=== PATIENT | female | born 1975 ===

== ENCOUNTER 2019-12-13 06:28 | Inpatient (IN) | payer BC ==
[2019-12-13] VITALS (13 sets, daily range): BP systolic 90–128; BP diastolic 54–86
[~2019-12-13] VITALS: Ht 157.5 cm; Wt 49.9 kg
[~2019-12-13 06:28] MED LIST: ATIVAN0.5 MG ORAL; CYMBALTA30 MG ORAL
[2019-12-13] MEDS ORDERED: Ropivacaine 5mg/ml Vial 30ml INJ ONE ×2 (06:55→08:29)
[2019-12-13] MEDS ORDERED: Bupivacaine 0.5% Inj 30 ml vial INJ ONE (06:56)
[2019-12-13] MEDS ORDERED: cefOXitin Sod 2 GM in D5W 110 ML IVPB ONE (07:00)
--- NOTE | 2019-12-13 07:18 | Anethesia Preoperative Eval ---
Anesthesia Pre-op PMH/ROS General Date of Evaluation: Dec 13, 2019 Anesthesiologist: Irvin ASA Score: ASA 2 Mallampati Score Class I : Soft palate, uvula, fauces, pillars visible Class II: Soft palate, uvula, fauces visible Class III: Soft palate, base of uvula visible Class IV: Only hard plate visible Mallampati Classification: Class I Surgeon: Duncan Diagnosis: Uterine fibroids Surgical Procedure: open myomectomy, d&C hysteroscopy Anesthesia History: none Family History: no anesthesia problems Allergies: Coded Allergies: No Known Allergies (Unverified , 12/13/19) Medications: see eMAR Patient NPO?: Yes NPO Date: Dec 13, 2019 NPO Time: 0000 Past Medical History Cardiovascular: Denies: HTN, CAD, VA, valve dz, arrhythmia, other Pulmonary: Denies: asthma, COPD, MICHELLE, other Gastrointestinal/Genitourinary: Denies: GERD, CRI, ESRD, other Neurologic/Psychiatric: Reports: depression/anxiety; Denies: dementia, CVA, TIA, other Endocrine: Denies: DM, hypothyroidism, steroids, other HEENT: Denies: cataract (L), cataract (R), glaucoma, SEMINOLE (L), SEMINOLE (R), other Hematology/Immune: Denies: anemia, DVT, bleeding disorder, other Musculoskeletal/Integumentary: Denies: OA, RA, DJD, DDD, edema, other PSxH Narrative: breast aug,lap appy Anesthesia Pre-op Phys. Exam Physician Exam Last Vital Signs Date Time Temp Pulse Resp B/P (MAP) Pulse Ox O2 Delivery O2 Flow Rate FiO2 12/13/19 07:11 Room Air 12/13/19 07:06 98.2 79 18 90/54 (66) 100 Constitutional: NAD Cardiovascular: RRR Respiratory: CTA Airway Exam Mallampati Score: Class I MO: full ROM: full Teeth: intact Anesthesia Pre-op A/P Labs see chart Urine Test Test 12/13/19 06:45 Urine HCG, Qualitative Negative (NEGATIVE) Studies Pre-op Studies: EKG - sr Risk Assessment & Plan Assessment: ASA II Plan: GA Status Change Before Surgery: No Pre-Antibiotics Drug: TBD Given Within 1 Hr of Incision: Yes Irina Hughes MD Dec 13, 2019 07:18
[2019-12-13] MEDS ORDERED: cefOXitin 2gm Inj ONE (07:20)
[2019-12-13] MEDS ORDERED: Rocuronium Bromide 50mg/5ml Inj IV ONE (07:20)
[2019-12-13] MEDS ORDERED: NS Irrig 1000ml IRRIG ONE ×2 (07:24→07:52)
[2019-12-13] MEDS ORDERED: fentaNYL 100 mcg/2 mL IV ONE (07:25)
[2019-12-13] MEDS ORDERED: Lidocaine 1% MPF 10mg/ml 5ml ONE (07:25)
[2019-12-13] MEDS ORDERED: Propofol 200mg/20ml IV ONE (07:25)
[2019-12-13] MEDS ORDERED: Midazolam 2mg/2ml Inj ONE (07:25)
[2019-12-13] MEDS ORDERED: Metoclopramide 10mg/2ml Inj ONE (07:27)
[2019-12-13] MEDS ORDERED: Ketorolac 30mg Inj ONE (07:27)
[2019-12-13] MEDS ORDERED: Dexamethasone 4mg/ml vial ONE (07:27)
[2019-12-13] MEDS ORDERED: LR 1000ml ONE (07:30)
[2019-12-13] MEDS ORDERED: Sterile Water Irrig 1000ml IRRIG ONE (07:30)
[2019-12-13] MEDS ORDERED: NS Irrig 1000ml ONE (07:30)
--- NOTE | 2019-12-13 07:43 | Pre-Procedure Note/Attestation ---
Pre-Procedure Note/Attestation Complete Prior to Procedure Planned Procedure: not applicable Procedure Narrative: myomectomy, hysteroscopy dilation and curettage Indications for Procedure Pre-Operative Diagnosis: symptomatic fibroids Attestation I attest that I discussed the nature of the procedure; its benefits; risks and complications; and alternatives (and the risks and benefits of such alternatives ), prior to the procedure, with the patient (or the patient's legal hobbies and crafts sales representative). I attest that, if there was a reasonable possibility of needing a blood transfusion, the patient (or the patient's legal hobbies and crafts sales representative) was given the [facility] standardized written summary, pursuant to the [place]acc Vin Blood Safety Act ([place] Health and Safety Code # 1645, as amended). I attest that I re-evaluated the patient just prior to the surgery and that there has been no change in the patient's H&P, except as documented below: Suha Song MD Dec 13, 2019 07:43
[2019-12-13] MEDS ORDERED: Ketorolac 30mg Inj IV PRN ×2 (07:45→09:15)
[2019-12-13] MEDS ORDERED: LORazepam 0.5mg tab ORAL PRN (07:45)
[2019-12-13] MEDS ORDERED: Acetaminophen 650 MG SUPP RECTAL PRN (07:45)
[2019-12-13] MEDS ORDERED: DiphenhydrAMINE 50mg/ml Inj IVP PRN ×2 (07:45→09:15)
[2019-12-13] MEDS ORDERED: NS 55ml IV ONE ×2 (07:52→08:41)
[2019-12-13] MEDS: DULoxetine 30mg cap ORAL SCH (09:00)
[2019-12-13] MEDS ORDERED: LR 1000ml 1,000 ML IVLG SCH (09:06)
[2019-12-13] MEDS ORDERED: Glycopyrrolate 0.2mg/ml 1ml Vial ONE (09:14)
[2019-12-13] MEDS ORDERED: Neostigmine 1mg/ml 10ml Inj ONE (09:14)
[2019-12-13] MEDS ORDERED: Hydromorphone 0.5mg/0.5ml inj IVP PRN (09:15)
[2019-12-13] MEDS ORDERED: LORazepam Inj 2mg/ml 1ml IV PRN (09:15)
[2019-12-13] MEDS ORDERED: Midazolam 2mg/2ml Inj IVP PRN (09:15)
[2019-12-13] MEDS ORDERED: fentaNYL 100 mcg/2 mL IV PRN (09:15)
--- NOTE | 2019-12-13 10:30 | Immediate Post-Op Evaluation ---
Immediate Post-Op Evalulation Immediate Post-Op Evalulation Procedure: Open abdominal myomectomy with D&C and hystertomy Date of Evaluation: Dec 13, 2019 Time of Evaluation: 10:31 IV Fluids: 1.5L Blood Products: 0 Estimated Blood Loss: 5 Urinary Output: 150 Blood Pressure Systolic: 111 Blood Pressure Diastolic: 75 Pulse Rate: 74 Respiratory Rate: 16 O2 Sat by Pulse Oximetry: 100 Temperature (Fahrenheit): 97.3 Pain Score (1-10): 0 Nausea: No Vomiting: No Complications 0 Patient Status: awake, reacts, patent, none Hydration Status: adequate Drug: Cefoxitin 2g Given Within 1 Hr of Incision: Yes Irina Hughes MD Dec 13, 2019 10:30
--- NOTE | 2019-12-13 10:30 | 48 Hour Post Anesthesia Eval ---
Post Anesthesia Evaluation Procedure: Open abdominal myomectomy with D&C and hystertomy Date of Evaluation: Dec 13, 2019 Airway: patent Nausea: No Vomiting: No Hydration Status: adequate Cardiopulmonary Status: at baseline Mental Status/LOC: patient returned to baseline Post-Anesthesia Complications: at baseline Follow-up care needed: ready to discharge Irina Hughes MD Dec 13, 2019 10:30
--- NOTE | 2019-12-13 14:00 | NUR ---
NURSE NOTES: Pt has been sleep since arrival. Bandage is clean and intact. Dr Song phoned to inquire if she will also be pt primary. confirmed that she will be pt primary. Has sensation to lower extremities. IV line remains patent v/s 97.9 110/62 O2 Sat 99.0 P 74 r18 98.5 103/ O2 , O2 sat 98, p 96 r 18 98.1 98/54 O2 98 P62 R18 98.7 117/69 98 P 76 R 20 Belonging present to include 13 dollars in [place], credit cards . clothing , phone. 2 sets of earrings
[2019-12-13] MEDS ORDERED: ceFAZolin sod 1 GM in D5W 55 ML IV ONE (16:00)
[2019-12-13] MEDS: HYDROmorphone 1mg/ml Carpuject IVP PRN ×2 (16:23→21:46)
[2019-12-13] MEDS: D5 1/2NS w/KCl 20mEq 1,000 ML IV SCH ×2 (16:24→21:50)
--- NOTE | 2019-12-13 17:04 | NUR ---
NURSE NOTES: Pt awake fully orientated provided with pain medication for pain to lower abdomen. Per pt she feels bloated. Pain medication provided tolerated fluids well
--- NOTE | 2019-12-13 17:33 | NUR ---
CASE MANAGEMENT: INITIAL REVIEW 44YR OLD FEMALE HERE FOR ELECTIVE SURGERY CC:ABD PAIN SI:SYMPTOMATIC UTERINE FIBROIDS 98.2 79 18 90/54 100% ON RA IS:OPEN MYOMECTOMY & D&C HYSTEROSCOPY IN SURGERY NOW \: [facility] MED SURG UNIT DCP: HOME WHEN STABLE
[2019-12-13] MEDS: HYDROcodone/Acetamin 5/325 tab ORAL PRN (18:58)
--- NOTE | 2019-12-13 19:41 | NUR ---
NURSE NOTES: Received report from ADAN Haney. Rounding is done with outgoing nurse. Patient is awake, a/o x4, and verbally responsive, and able to known her needs. Breathing is even and unlabored. No c/o pain at this time because patient got pain medication around 1900. IV line on Rt hand is intact and patent. IV fluid is running. Dressing on abdomen is C/D/I. Murry cath is draining to gravity. Bed is on alarm, locked, and lowest position. Call light is within reach. Will continue to monitor.
--- NOTE | 2019-12-13 20:07 | NUR ---
NURSE NOTES: Pt able to verbalize known needs , call light is in reach. Endorsed to oncoming nurse that F/C to be removed , and pt requires a abdominal binder. Current plan will be followed .
--- NOTE | 2019-12-13 20:24 | NUR ---
HAND-OFF: Report given to Boni ARELLANO.
--- NOTE | 2019-12-13 22:10 | NUR ---
NURSE NOTES: Murry cath discontinued as ordered. Encouraged to drink fluid and Educated that if patient want to void, push call light for help. Will continue to monitor.
[2019-12-14] VITALS: BP 93/54
--- NOTE | 2019-12-14 | NUR ---
NURSE NOTES: Patient voided at restroom.
[2019-12-14] MEDS: HYDROcodone/Acetamin 5/325 tab ORAL PRN ×2 (00:14→13:07)
--- NOTE | 2019-12-14 01:30 | NUR ---
NURSE NOTES: patient c/o pain and wanted pain medication. But patient bp and heart rate are low. Explained patient about adverse effects for pain medication and also notified to charge nurse.
[2019-12-14 04:00] VITALS: BP 101/58
--- NOTE | 2019-12-14 04:00 | NUR ---
Patient refused IV fluid. Explained benefits and risk, but still refused. Addendum: 12/14/19 at 0629 by Boni Rosen RN NURSE NOTES: Patient refused IV fluid. Explained benefits and risk, but still refused. Also, patient voided.
[2019-12-14] MEDS: HYDROmorphone 1mg/ml Carpuject IVP PRN ×2 (04:40→08:32)
--- NOTE | 2019-12-14 04:40 | NUR ---
NURSE NOTES: patient c/o pain. checked bp and heart rate; bp 101/58, heart rate 57. Explained adverse effects of pain medication. But patient still wanted pain medication, so asked to charge nurse. Given pain medication with explained side effects and adverse effects.
[2019-12-14] MEDS: D5 1/2NS w/KCl 20mEq 1,000 ML IV SCH ×2 (04:46→13:00)
[2019-12-14 06:37] LABS: BASOPHILS % (AUTO) 0.7 % (0.0-2.0); EOSINOPHILS % (AUTO) 2.1 % (0.0-3.0); HEMATOCRIT 30.4 % (37.0-47.0); HEMOGLOBIN 10.3 G/DL (12.0-16.0); LYMPHOCYTES % (AUTO) 31.2 % (20.0-45.0); MEAN CORPUSCULAR VOLUME 91 FL (80-99); MONOCYTES % (AUTO) 10.5 % (1.0-10.0); NEUTROPHILS % (AUTO) 55.5 % (45.0-75.0); PLATELET COUNT 234 K/UL (150-450); RED BLOOD COUNT 3.35 M/UL (4.20-5.40); RED CELL DISTRIBUTION WIDTH 12.4 % (11.6-14.8); WHITE BLOOD COUNT 10.3 K/UL (4.8-10.8)
[2019-12-14 07:12] LABS: ANION GAP 5 mmol/L (5-15); BLOOD UREA NITROGEN 11 mg/dL (7-18); CALCIUM 7.9 MG/DL (8.5-10.1); CARBON DIOXIDE 29 MMOL/L (21-32); CHLORIDE 107 MMOL/L (98-107); CREATININE 0.7 MG/DL (0.55-1.30); POTASSIUM 3.8 MMOL/L (3.5-5.1); SODIUM 141 MMOL/L (136-145)
--- NOTE | 2019-12-14 07:50 | NUR ---
HAND-OFF: Report given to Medina ARELLANO. Patient in stable condition.
--- NOTE | 2019-12-14 07:57 | NUR ---
NURSE NOTES: Pt his talking very fast and loud. Difficult to redirect . Seems anxious, verbalizing she did not rest last night. Abdominal binder on , Per report of outgoing nurse pt did not want IV fluids. Current plan of care will be followed
[2019-12-14 08:00] VITALS: BP 107/58
--- NOTE | 2019-12-14 08:00 | NUR ---
NURSE NOTES: Pt requesting to leave. " Dr Lynne said she will let me go today : is she here" Pt informed that the Dr is not here, and health underwriter does not have orders to discharge.
[2019-12-14] MEDS: DULoxetine 30mg cap ORAL SCH (08:30)
--- NOTE | 2019-12-14 12:25 | Brief Operative Note ---
Immediate Post Operative Note Operative Note Pre-op Diagnosis: symptomatic fibroids Procedure: explaratory laparotomy, myomectomy, hysteroscopy dilation and curettage Post-op Diagnosis: same Surgeon: ronald juárez Computer Mechanic: nereida lowry Anesthesiologist: Vijay Anesthesia: general Specimen: yes Complications: none Condition: stable Fluids: 1.5 L crystalloid Estimated Blood Loss: minimal Drains: none Implant(s) used?: No Ronald Juárez MD Dec 14, 2019 12:25
--- NOTE | 2019-12-14 12:26 | Discharge Instructions ---
Discharge Instructions Discharge Instructions Diet: regular Resume Normal Activity?: Yes Activity: up ad stephanie, ambulate, okay to shower For Surgical Patients Clean and Dry: surgical site Dressing Care: keep dry and clean May shower: Yes Contact your physician for: bleeding, pain, tenderness, redness, swelling, yellowish discharge in the op. site For Congestive Heart Failure Reminder Report to your physician any weight gain of 5 pounds or more in one week. Suha Song MD Dec 14, 2019 12:26
--- NOTE | 2019-12-14 12:29 | General Surgery Progress Note ---
General Surgery-Progress Note Subjective Procedure Performed explaratory laparotomy, myomectomy, hysteroscopy dilation and curettage Symptoms: improved, pain absent, tolerating diet, voiding well, passing flatus Objective Last 24 Hour Vital Signs Date Time Temp Pulse Resp B/P (MAP) Pulse Ox O2 Delivery O2 Flow Rate FiO2 12/14/19 09:00 Room Air 12/14/19 08:00 98.1 64 18 107/58 (74) 12/14/19 04:00 98.0 57 19 101/58 (72) 96 12/14/19 00:00 98.1 59 18 93/54 (67) 98 12/14/19 00:00 98.1 59 18 93/54 (67) 98 12/13/19 21:00 Room Air 12/13/19 20:00 98.2 70 19 93/63 (73) 96 12/13/19 16:00 98.5 83 91/67 (75) I&O Intake and Output 12/13/19 12/14/19 19:00 07:00 Intake Total 1900 ml 1000 ml Output Total 855 ml Balance 1045 ml 1000 ml Intake Oral 300 ml IV Total 1600 ml 1000 ml Output Urine Total 850 ml Estimated Blood Loss 5 ml Dressing: dry Wound: clean, dry, intact Drains: none Cardiovascular: RSR Respiratory: clear Abdomen: soft, flat, non-tender Extremities: no edema, no tenderness, no cyanosis Laboratory Tests Test 12/14/19 05:50 White Blood Count 10.3 K/UL (4.8-10.8) Red Blood Count 3.35 M/UL (4.20-5.40) L Hemoglobin 10.3 G/DL (12.0-16.0) L Hematocrit 30.4 % (37.0-47.0) L Mean Corpuscular Volume 91 FL (80-99) Mean Corpuscular Hemoglobin 30.7 PG (27.0-31.0) Mean Corpuscular Hemoglobin Concent 33.8 G/DL (32.0-36.0) Red Cell Distribution Width 12.4 % (11.6-14.8) Platelet Count 234 K/UL (150-450) Mean Platelet Volume 5.8 FL (6.5-10.1) L Neutrophils (%) (Auto) 55.5 % (45.0-75.0) Lymphocytes (%) (Auto) 31.2 % (20.0-45.0) Monocytes (%) (Auto) 10.5 % (1.0-10.0) H Eosinophils (%) (Auto) 2.1 % (0.0-3.0) Basophils (%) (Auto) 0.7 % (0.0-2.0) Sodium Level 141 MMOL/L (136-145) Potassium Level 3.8 MMOL/L (3.5-5.1) Chloride Level 107 MMOL/L (98-107) Carbon Dioxide Level 29 MMOL/L (21-32) Anion Gap 5 mmol/L (5-15) Blood Urea Nitrogen 11 mg/dL (7-18) Creatinine 0.7 MG/DL (0.55-1.30) Estimat Glomerular Filtration Rate > 60 mL/min (>60) Glucose Level 100 MG/DL (74-106) Calcium Level 7.9 MG/DL (8.5-10.1) L Assessment Post-op Diagnosis same Plan Additional Comments d/c home with follow up in one - 2 weeks Suha Song MD Dec 14, 2019 12:29
--- NOTE | 2019-12-14 13:10 | NUR ---
NURSE NOTES: Pt discharged states Dr Song has been her Dr for 20 years. Orders to discharge pt. Peripad given for small amount of discharge. IV removed. Provided with education on s/p myectomy. FAQ related to surgery. Pt informed to follow with Dr Song when she can resume sexual activity, no bathes, heavy lifting and not to insert any objects into vagina. Pt stated " I looked it up already since nobody told me anything" Pt informed that pt teaching was provided yesterday and earlier n shift. " I must have been high, everyone has been good I just feel like I wasn' t told anything about the surgery." Pt teaching provided , encouraged to follow up with Dr Song for information in regards to what occurred during surgery
--- NOTE | 2019-12-14 13:15 | NUR ---
NURSE NOTES: Assisted downstairs , family member came to cloth picker pt pt . Lift in stable condition provided with pain medication prior to discharge, verbalized understanding personal medication from pharmacy provided. Personal items reviewed and present
--- NOTE | 2019-12-14 20:15 | Operative Note - Dictated ---
DATE OF OPERATION: 12/14/2019 PREOPERATIVE DIAGNOSIS: Symptomatic uterine fibroids. POSTOPERATIVE DIAGNOSIS: Symptomatic uterine fibroids. PROCEDURE: 1. Exploratory laparotomy. 2. Myomectomy. 3. Hysteroscopy. 4. D and C. SURGEON: Suha Song M.D. BATHING SUIT MAKER: Mary Lou Mendez M.D. ANESTHESIOLOGIST: Dr. Linares. ANESTHESIA: General endotracheal. PROCEDURE IN DETAIL: After ensuring informed consent, the patient was taken to the operating room where general anesthesia was induced. The patient was sterilely prepped and draped and placed in dorsal lithotomy position with legs up in Enrique stirrups. A speculum was placed into the vagina and cervix was easily dilated to an 8 Hegar dilator. Hysteroscope was placed inside the uterine cavity. Uterine cavity was distended with normal saline. There was a potential polyp versus pseudopolyp on right lateral sidewall, which was removed. Hysteroscope was replaced inside the uterine cavity and uterine cavity appeared clear. Specimen was sent to pathology. A HUMI-type manipulator was placed inside the uterus. Next, attention was turned to the abdomen where a incision was made in the same scar as the prior . Incision was carried down to the level of the fascia with the Bovie. The fascia was tented up and both bluntly and sharply dissected off of the underlying rectus muscles. Next the same was repeated in the inferior portion. Next, muscles were spread. Peritoneum was identified and entered sharply. Peritoneal incision was extended superiorly and inferiorly. Uterus was identified and fibroid was identified in the right lateral fundus. The uterus was injected with a dilute solution of Pitressin and the fibroid was removed via . Next after the large approximately 7 cm fibroid was removed, a second fibroid to which it was connected which was approximately 2 cm was removed as well. Then uterine incision was closed with 0 Vicryl in multiple layers. Excellent hemostasis was assured. The pelvic cavity was irrigated with normal saline. Peritoneum was closed with 2-0 Vicryl. Muscles were approximated with 2-0 Vicryl. Fascia was closed with 0 Vicryl. Subcutaneous tissue was closed with 3-0 plain and skin was closed with 3-0 Monocryl. At the end of the procedure, all instrument and lap counts were correct x2. The patient was taken to the recovery area extubated in stable condition with Murry in situ. Suha Song M.D. DR: Osmany JOB#: [id number] CC:
--- NOTE | 2019-12-14 22:00 | Discharge Summary ---
DATE OF ADMISSION: 12/13/2019 DATE OF DISCHARGE: 12/14/2019 ADMISSION DIAGNOSIS: Symptomatic uterine fibroids. DISCHARGE DIAGNOSIS: Symptomatic uterine fibroids status post myomectomy. HOSPITAL COURSE: The patient was admitted on 12/13/2019 for elective myomectomy. She underwent myomectomy with minimal blood loss. She was kept in the hospital until postop day #1. She ambulated and voided spontaneously, tolerated regular diet and was discharged on postop day #1 to home. The patient was discharged with Motrin and Arco for pain control. Her instructions were to follow up with me in 1 to 2 weeks as well as if she has pain, fever, nausea, vomiting, or redness around her incision. Suha Song M.D. DR: Osmany JOB#: [id number] CC:
== END 2019-12-14 13:23 | disposition home or self-care (01) | DRG 743 ==
LOC: SDSOVERFLO 06:28 → 3E 11:55
DX: D25.9 Leiomyoma of uterus, unspecified (principal); F41.9 Anxiety disorder, unspecified; F17.200 Nicotine dependence, unspecified, uncomplicated
CPT/HCPCS: 36415; 80048; 81025; 85025; 86850; 86900; 86901; 87081; 94003; 94150; J2250; J2405; J2710; J2765